=== PATIENT | male | born 1975 | race African-American/Black ===

== ENCOUNTER 2017-12-03 23:33 | Emergency (ER) | payer OTHER ==
[~2017-12-03] VITALS: Ht 182.9 cm; Wt 45.4 kg
--- NOTE | ~2017-12-03 | EKG ---
[address] [place] [address] ELECTROCARDIOGRAM REPORT Name: ALINE CONNER Room #: DEP Rob#: [id number] Admission: 12/03/17 Attend Phys: Discharge: 12/04/17 Date of : 77 Report #: [id number] THIS REPORT FOR: //name// [facility] ED Test Date: 2017-12-04 Test Time: 00:24:50 Pat Name: ALINE CONNER Department: Room: Gender: [place] Worker: ETELVINARoderickDMITRY : 1975 Requested By: Pino Hollingsworth Order Number: [id number] MD: Ferdinand Wick Measurements Intervals [place] Rate: 69 P: 84 WV: 140 QRS: 79 QRSD: 142 T: 78 QT: 403 QTc: 432 Interpretive Statements Sinus rhythm Repolarization abnormality No previous ECG available for comparison Electronically Signed On 12-04-2017 13:49:51 [employer]MICAL ENG[employer] by Ferdinand Wick [email or web address] <ELECTRONICALLY SIGNED> By: Ferdinand Wick MD, [facility] 12/04/17 1349 0024 0024 Ferdinand Wick MD, FACC /EPI
[2017-12-04 01:10] LABS: ABSOLUTE NEUTROPHILS 5.5 thou/uL (1.4-8.2); BASOPHILS 0.8 % (0.0-2.0); EOSINOPHILS 0.4 % (0.0-3.0); HEMATOCRIT 44.7 % (42.0-52.0); HEMOGLOBIN 15.7 gm/dL (14.0-18.0); LYMPHOCYTES 18.6 % (24.0-44.0); MCH 32.9 pg (26.0-34.0); MCHC 35.2 g/dL (28.0-37.0); MCV 93.4 fL (80.0-100.0); MONOCYTES 8.3 % (1.0-8.0); PLATELET COUNT 255 thou/uL (150-400); POLYS 71.9 % (36.0-66.0); RBC 4.78 mil/uL (4.50-6.00); RDW 12.8 % (10.5-14.5); WBC 7.7 thou/uL (4.0-11.0)
[2017-12-04 01:21] LABS: ANION GAP 8 mmol/L (7-16); BUN 10 mg/dL (7-18); CALCIUM 9.5 mg/dL (8.5-10.1); CHLORIDE 102 mmol/L (98-107); CO2 29 mmol/L (21-32); CREATININE 0.7 mg/dL (0.7-1.3); GLUCOSE 77 mg/dL (74-106); POTASSIUM 4.2 mmol/L (3.5-5.1); SODIUM 139 mmol/L (136-145)
[2017-12-04 01:30] LABS: TROPONIN-I < 0.04 ng/mL (<0.06)
[2017-12-04 04:26] LABS: AMP/METHAMP POSITIVE (Negative); BARBITURATES Negative (Negative); BENZODIAZEPINES Negative (Negative); COCAINE Negative (Negative); METHADONE Negative (Negative); OPIATES Negative (Negative); PCP Negative (Negative)
== END 2017-12-04 02:29 | disposition home or self-care (01) ==
LOC: ER 23:33
PROVIDERS: Emergency Medicine
DX: R41.0 Disorientation, unspecified (principal); T68.XXXA Hypothermia, initial encounter; F17.210 Nicotine dependence, cigarettes, uncomplicated